=== PATIENT | female | born 1965 | race Caucasian/White ===

== ENCOUNTER 2016-03-02 11:48 | Emergency (ER) | payer OTHER ==
[~2016-03-02] VITALS: Ht 160 cm; Wt 73.9 kg
[2016-03-02 12:36] LABS: HEMATOCRIT 36.4 % (36.0-46.0); MCH 31.2 PG (29.0-34.0); MCHC 33.2 G/DL (30.0-36.0); MCV 93.8 FL (83-99); MEAN PLAT.VOLUME 9.7 uM^3 (9.5-12.4); PLATELET COUNT 186 K/uL (156-360); RBC DIS.WIDTH-CV 11.8 % (11.8-14.6); RBC DIS.WIDTH-SD 39.1 % (39-53); RED BLOOD COUNT 3.88 M/uL (3.80-5.20); WHITE BLOOD COUNT 6.9 K/uL (4.1-10.2)
[2016-03-02 12:48] LABS: CHLORIDE 104 mEq/L (99-109); POTASSIUM 3.7 mEq/L (3.7-5.4); SODIUM 139 mEq/L (136-147)
[2016-03-02 12:49] LABS: GLUCOSE 84 mg/dL (70-99)
[2016-03-02 12:51] LABS: ANION GAP 10 MEQ/L (2-14)
[2016-03-02 12:53] LABS: GFR ESTIMATE (CALCULATED) > 59 mL/min/
[2016-03-02 12:54] LABS: UREA NITROGEN (BUN) 11 mg/dL (9-23)
[2016-03-02] MEDS ORDERED: METHADONE10 MG PO (13:59)
[2016-03-02] MEDS ORDERED: DULOXETINE HCL60 MG PO (14:00)
[2016-03-02] MEDS ORDERED: ELMIRON100 MG PO (14:00)
[2016-03-02] MEDS ORDERED: SYNTHROID137 MCG PO (14:00)
[2016-03-02] MEDS ORDERED: DILTIAZEM 24HR240 MG PO (14:01)
[2016-03-02 14:39] LABS: ADD MIUA? NO; BILIRUBIN NEGATIVE; BLOOD NEGATIVE; COLOR YELLOW ((YELLOW)); GLUCOSE (STRIP) NEGATIVE; KETONES NEGATIVE; LEUKOCYTES NEGATIVE; NITRITE NEGATIVE; PH, URINE 7.5 (5-8); PROTEIN (STRIP) NEGATIVE; SPECIFIC GRAVITY 1.019 (1.000-1.030); UCUL ADDED? NO; UROBILINOGEN 0.2 MG/DL (0.2-1.0)
[2016-03-02] MEDS ORDERED: LIDODERM 5% P1 PATCH TD (16:26)
[2016-03-02] MEDS ORDERED: MOTRIN600 MG PO (16:26)
[2016-03-02 16:42] VITALS: BP 116/72
== END 2016-03-02 16:43 | disposition home or self-care (01) ==
LOC: EME 11:48 → RME 11:48
DX: R07.89 Other chest pain (principal); Z87.891 Personal history of nicotine dependence
CPT/HCPCS: 71020; 80048; 81003; 85027; 99281; 99283; J1885